=== PATIENT | male | born 1945 | race Asian ===

== ENCOUNTER → 2016-11-26 | Outpatient (CLI) | payer MEDICARE, OTHER ==
[~2016-11-26] MED LIST: GADOBUTROL 1 MMOL/ML 10 ML VIAL IVP ONE
[2016-11-26 11:50] LABS: CREATININE 0.91 mg/dL (0.60-1.30); GLOMERULAR FILTR. RATE CALC > 60 mL/min (>60); UREA NITROGEN, BLOOD 16 mg/dL (7-18)
== END | disposition home or self-care (01) ==
LOC: LABPV 09:35
PROVIDERS: ATTEND Otolaryngology
DX: H93.13 Tinnitus, bilateral (principal); H81.392 Other peripheral vertigo, left ear; H55.09 Other forms of nystagmus; R42 Dizziness and giddiness
CPT/HCPCS: 36415; 70553; 82565; 84520; A9585